=== PATIENT | male | born 1955 | race Caucasian/White ===

== ENCOUNTER 2016-08-20 14:28 | Inpatient (IN) | payer OTHER ==
[~2016-08-20] VITALS: Ht 188 cm; Wt 90.4 kg
[~2016-08-20 14:28] MED LIST: AMLODIPINE; ASPIRIN81 MG PO; ATENOLOL25 MG PO; ATROVENT H0.017 MG/1; BENZOCAINE; BENZONATATE; CALCIUM ANTACI500 MG PO; CIPROFLOXACIN500 MG PO; FLO4 PO; LORATADINE10 MG PO; MENTHOL; MORPHINE SULFAT15 MG; NASONEX0.05 MG/Ac; OMEPRAZOLE DR20 M1 PO; ONDANSETRON4 M3 PO; PREDNISONE1 MG PO; ROC1I; TERAZOSIN HCL2 MG PO; TRIAMCINOLONE AC0.13 TOP; TYLENOL EXTRA500 M2 PO; XOPENEX HF0.045 MG/1
[2016-08-20 16:48] LABS: BASOPHIL % 0.2 % (0-2)
[2016-08-20 16:49] LABS: RED CELL DISTRIBUTION WIDTH 14.9 % (11.5-14.5)
[2016-08-20 16:51] LABS: CALCIUM 8.9 mg/dL (8.5-10.1); CARBON DIOXIDE 26.3 mmol/L (21-32); CREATININE SERUM 1.4 mg/dL (0.7-1.3); PLATELET COUNT 58 x10^3mcL (130-400); POTASSIUM SERUM 4.2 mmol/L (3.5-5.1)
[2016-08-20 16:55] LABS: ALBUMIN 3.5 g/dL (3.4-5.0); BILIRUBIN TOTAL 1.6 mg/dL (0.20-1.00); TOTAL PROTEIN, SERUM 6.7 g/dL (6.4-8.2)
[2016-08-20 20:51] VITALS: BP 107/77
[2016-08-20 20:54] VITALS: Ht 188 cm; Wt 90.4 kg
[2016-08-20 21:02] VITALS: BP 107/77
[2016-08-21 06:04] LABS: BASOPHIL % 0.3 % (0-2)
[2016-08-21 06:27] LABS: CALCIUM 8.3 mg/dL (8.5-10.1); CARBON DIOXIDE 28.2 mmol/L (21-32); CREATININE SERUM 1.3 mg/dL (0.7-1.3); POTASSIUM SERUM 3.8 mmol/L (3.5-5.1)
[2016-08-21 06:41] VITALS: BP 98/57
[2016-08-21 07:14] LABS: PLATELET COUNT 54 x10^3mcL (130-400); RED CELL DISTRIBUTION WIDTH 15.1 % (11.5-14.5)
[2016-08-21 09:53] VITALS: BP 169/99
[2016-08-21 14:10] VITALS: BP 160/98
[2016-08-21 18:25] VITALS: BP 93/45
[2016-08-21 21:15] VITALS: BP 149/109
[2016-08-22 05:13] VITALS: BP 163/101
[2016-08-22 05:59] LABS: BASOPHIL % 0.5 % (0-2)
[2016-08-22 06:07] LABS: CALCIUM 7.9 mg/dL (8.5-10.1); CARBON DIOXIDE 30.1 mmol/L (21-32); CHLORIDE SERUM 110 mmol/L (98-107); CREATININE SERUM 1.2 mg/dL (0.7-1.3); GFR1 > 60 mL/min; GLUCOSE SERUM 99 mg/dL (74-106); POTASSIUM SERUM 4.6 mmol/L (3.5-5.1); SODIUM SERUM 145 mmol/L (136-145)
[2016-08-22 06:11] LABS: PLATELET COUNT 54 x10^3mcL (130-400); RED CELL DISTRIBUTION WIDTH 14.6 % (11.5-14.5)
[2016-08-22 10:15] VITALS: BP 165/104
[2016-08-22 14:56] VITALS: BP 165/104
[2016-08-22] MEDS ORDERED: CHILDREN'S5 MG/5 M1 PO (15:09)
[2016-08-22] MEDS ORDERED: OMEPRAZOLE MAGN20 M1 (15:11)
[2016-08-22 15:15] VITALS: BP 165/104
== END 2016-08-22 17:09 | disposition other institution (70) | DRG 433 ==
LOC: ED 14:28 → DU 19:03
PROVIDERS: Emergency Medicine; Internal Medicine; ADMIT Internal Medicine
PROC: 0DJ08ZZ Inspection of Upper Intestinal Tract, Via Natural or Artificial Opening Endoscopic (ICD-10-PCS; principal; 2016-08-22 12:00)
DX: K74.69 Other cirrhosis of liver (principal); C22.0 Liver cell carcinoma; R18.8 Other ascites; I85.10 Secondary esophageal varices without bleeding; B18.2 Chronic viral hepatitis C; I10 Essential (primary) hypertension; K59.00 Constipation, unspecified; J44.9 Chronic obstructive pulmonary disease, unspecified; I25.10 Atherosclerotic heart disease of native coronary artery without angina pectoris; D69.59 Other secondary thrombocytopenia; R74.0 Nonspecific elevation of levels of transaminase and lactic acid dehydrogenase [LDH]
CPT/HCPCS: 43235; J0696; J1200; J1610; J2250; J2270; J2310; J2550; J3010; J3490; J7042; J7512; Q0092

== ENCOUNTER 2016-10-30 10:54 | Inpatient (IN) | payer OTHER ==
[~2016-10-30] VITALS: Ht 188 cm; Wt 103.6 kg
[~2016-10-30 10:54] MED LIST changes: +CHILDREN'S5 MG/5 M1 PO; +OMEPRAZOLE MAGN20 M1
[2016-10-30 11:31] LABS: BASOPHIL % 0.5 % (0-2); RED CELL DISTRIBUTION WIDTH 14.5 % (11.5-14.5)
[2016-10-30 11:34] LABS: PLATELET COUNT 81 x10^3mcL (130-400)
[2016-10-30 11:40] LABS: CARBON DIOXIDE 21.9 mmol/L (21-32); CREATININE SERUM 1.3 mg/dL (0.7-1.3); POTASSIUM SERUM 4.2 mmol/L (3.5-5.1)
[2016-10-30 11:45] LABS: ALBUMIN 3.5 g/dL (3.4-5.0); BILIRUBIN TOTAL 1.53 mg/dL (0.20-1.00); TOTAL PROTEIN, SERUM 6.9 g/dL (6.4-8.2)
[2016-10-30 12:13] LABS: microscopic required? NO
[2016-10-30 12:32] LABS: urine erythrocyte NEGATIVE (NEGATIVE)
[2016-10-30] MEDS ORDERED: NEXAVAR200 MG PO (12:38)
[2016-10-30] MEDS ORDERED: PRILOSEC OTC20 M1 PO (12:39)
[2016-10-30] MEDS ORDERED: FOSAMAX70 M1 PO (12:40)
[2016-10-30] MEDS ORDERED: TESSALON PERLE100 MG PO ×2 (12:40→12:44)
[2016-10-30] MEDS ORDERED: NON-ASPIRIN325 MG PO (12:41)
[2016-10-30] MEDS ORDERED: ALENDRONATE SOD70 M3 PO (12:42)
[2016-10-30] MEDS ORDERED: CEPACOL SORE TH1 LO4 MM (12:43)
[2016-10-30] MEDS ORDERED: NATURE S BLEND PO (12:45)
[2016-10-30] MEDS ORDERED: CALCIUM POLYCARBOPHIL PO (12:46)
[2016-10-30] MEDS ORDERED: ARTHRITIS PAI42.5 GM TP (12:47)
[2016-10-30] MEDS ORDERED: CIPRO500 MG PO (12:47)
[2016-10-30] MEDS ORDERED: CLONIDINE HYDR0.3 M1 PO (12:48)
[2016-10-30] MEDS ORDERED: FINASTERIDE5 M1 PO (12:49)
[2016-10-30] MEDS ORDERED: FUROSEMIDE20 MG PO (12:49)
[2016-10-30] MEDS ORDERED: ATRUD HHN (12:51)
[2016-10-30] MEDS ORDERED: LACTULOSE10 GM/152 PO (12:51)
[2016-10-30] MEDS ORDERED: CLARITIN10 MG PO (12:52)
[2016-10-30] MEDS ORDERED: XOPENEX HF0.045 MG/1 IH (12:52)
[2016-10-30] MEDS ORDERED: COZAAR100 MG PO (12:53)
[2016-10-30] MEDS ORDERED: METOCLOPRAMIDE10 M2 PO (12:53)
[2016-10-30] MEDS ORDERED: ASMANEX TW0.22 MG/A1 IH (12:54)
[2016-10-30] MEDS ORDERED: MORPHINE SULFAT15 M7 PO (12:55)
[2016-10-30] MEDS ORDERED: MORPHINE SULFAT30 M6 PO (12:57)
[2016-10-30] MEDS ORDERED: ALLERGY EYE DRO15 ML (12:58)
[2016-10-30] MEDS ORDERED: PREDNISONE20 MG PO (12:59)
[2016-10-30] MEDS ORDERED: SPIRIVA18 MC1 INH (13:00)
[2016-10-30] MEDS ORDERED: FLOMAX0.4 MG PO (13:00)
[2016-10-30] MEDS ORDERED: [UNRECOGNIZED DRUG - OTHER] TOP (13:01)
[2016-10-30] MEDS ORDERED: NASINH (13:02)
[2016-10-30 13:30] VITALS: BP 185/122
[2016-10-30 13:39] VITALS: BP 185/122
[2016-10-30 16:36] VITALS: BP 185/122
[2016-10-30 17:00] VITALS: BP 132/87
[2016-10-30 20:58] VITALS: BP 114/80
[2016-10-30 20:59] VITALS: BP 159/73
[2016-10-31 06:17] LABS: CALCIUM 8.3 mg/dL (8.5-10.1); CARBON DIOXIDE 27.5 mmol/L (21-32); CREATININE SERUM 1.4 mg/dL (0.7-1.3); POTASSIUM SERUM 4.4 mmol/L (3.5-5.1)
[2016-10-31 06:19] LABS: BASOPHIL % 0.3 % (0-2); RED CELL DISTRIBUTION WIDTH 14.4 % (11.5-14.5)
[2016-10-31 06:46] VITALS: BP 160/110
[2016-10-31 06:53] LABS: PLATELET COUNT 58 x10^3mcL (130-400)
[2016-10-31 09:00] VITALS: BP 138/104
[2016-10-31 14:00] VITALS: BP 117/92
[2016-10-31 17:00] VITALS: BP 125/82
[2016-10-31 21:33] VITALS: BP 114/81
[2016-11-01 06:08] VITALS: BP 131/101
[2016-11-01 06:22] LABS: CALCIUM 8.5 mg/dL (8.5-10.1); CREATININE SERUM 1.3 mg/dL (0.7-1.3); POTASSIUM SERUM 5.2 mmol/L (3.5-5.1)
[2016-11-01 06:39] LABS: BASOPHIL % 0.4 % (0-2); RED CELL DISTRIBUTION WIDTH 14.2 % (11.5-14.5)
[2016-11-01 06:59] LABS: PLATELET COUNT 55 x10^3mcL (130-400)
[2016-11-01 10:09] VITALS: BP 142/109
[2016-11-01 13:56] VITALS: BP 145/106
[2016-11-01 14:02] VITALS: BP 145/106
== END 2016-11-01 16:48 | disposition other institution (70) | DRG 392 ==
LOC: ED 10:54 → DU 12:28
PROVIDERS: Emergency Medicine; ADMIT Internal Medicine
DX: K52.9 Noninfective gastroenteritis and colitis, unspecified (principal); C22.0 Liver cell carcinoma; R18.8 Other ascites; E87.2 Acidosis; K74.69 Other cirrhosis of liver; I10 Essential (primary) hypertension; R06.89 Other abnormalities of breathing
CPT/HCPCS: 83880; J0295; J2270; J2550; J3010; J3490; J7030; J7512; J7644; Q0092

== ENCOUNTER 2017-08-20 15:09 | Inpatient (IN) | payer OTHER ==
[~2017-08-20] VITALS: Ht 188 cm; Wt 104.4 kg
[~2017-08-20 15:09] MED LIST changes: +ALENDRONATE SOD70 M3 PO; +ALLERGY EYE DRO15 ML; +ARTHRITIS PAI42.5 GM TP; +ASMANEX TW0.22 MG/A1 IH; +ATRUD HHN; +CALCIUM POLYCARBOPHIL PO; +CEPACOL SORE TH1 LO4 MM; +CIPRO500 MG PO; +CLARITIN10 MG PO; +CLONIDINE HYDR0.3 M1 PO; +COZAAR100 MG PO; +FINASTERIDE5 M1 PO; +FLOMAX0.4 MG PO; +FOSAMAX70 M1 PO; +FUROSEMIDE20 MG PO; +LACTULOSE10 GM/152 PO; +METOCLOPRAMIDE10 M2 PO; +MORPHINE SULFAT15 M7 PO; +MORPHINE SULFAT30 M6 PO; +NASINH; +NATURE S BLEND PO; +NEXAVAR200 MG PO; +NON-ASPIRIN325 MG PO; +PREDNISONE20 MG PO; +PRILOSEC OTC20 M1 PO; +SPIRIVA18 MC1 INH; +TESSALON PERLE100 MG PO; +XOPENEX HF0.045 MG/1 IH; +[UNRECOGNIZED DRUG - OTHER] TOP
[2017-08-20 15:14] VITALS: Ht 188 cm; Wt 104.4 kg
[2017-08-20 16:03] LABS: BASOPHIL % 0.2 % (0-2)
[2017-08-20 16:07] LABS: PLATELET COUNT 55 x10^3mcL (130-400); RED CELL DISTRIBUTION WIDTH 15.8 % (11.5-14.5)
[2017-08-20 16:13] LABS: CALCIUM 8.9 mg/dL (8.5-10.1); CARBON DIOXIDE 26.7 mmol/L (21-32); CHLORIDE SERUM 110 mmol/L (98-107); GFR1 > 60 mL/min; GLUCOSE SERUM 118 mg/dL (74-106); POTASSIUM SERUM 4.1 mmol/L (3.5-5.1); SODIUM SERUM 144 mmol/L (136-145)
[2017-08-20] MEDS ORDERED: HYDROCHLOROTHIA25 MG PO (16:14)
[2017-08-20] MEDS ORDERED: FIBERLAX PO (16:14)
[2017-08-20] MEDS ORDERED: IPRATROPIUM-ALBUTERO ×2 (16:16→16:17)
[2017-08-20 16:17] LABS: ALBUMIN 3.8 g/dL (3.4-5.0); ALKALINE PHOSPHATASE 110 U/L (46-116); ALT/SGPT 110 U/L (16-63); AMYLASE 37 U/L (25-115); AST/SGOT 47 U/L (15-37); BILIRUBIN TOTAL 1.44 mg/dL (0.20-1.00); LIPASE 141 IU/L (73-393); TOTAL PROTEIN, SERUM 6.8 g/dL (6.4-8.2)
[2017-08-20] MEDS ORDERED: KETOTIFEN (16:18)
[2017-08-20] MEDS ORDERED: LACTULOSE10 GM/152 PO (16:19)
[2017-08-20] MEDS ORDERED: SINGULAIR10 MG PO (16:20)
[2017-08-20] MEDS ORDERED: MIRALAX17 GM/Dose PO (16:20)
[2017-08-20] MEDS ORDERED: NASINH (16:21)
[2017-08-20] MEDS ORDERED: NOR10 PO (16:22)
[2017-08-20] MEDS ORDERED: PREDNISONE20 MG PO (16:23)
[2017-08-20] MEDS ORDERED: PRILOSEC OTC20 M1 PO (16:23)
[2017-08-20] MEDS ORDERED: SPIRIVA18 MC1 INH (16:24)
[2017-08-20] MEDS ORDERED: SENNA8.6 M2 PO (16:24)
[2017-08-20] MEDS ORDERED: TAMSULOSIN HYD0.4 M1 PO (16:25)
[2017-08-20] MEDS ORDERED: [UNRECOGNIZED DRUG - OTHER] TOP (16:25)
[2017-08-20] MEDS ORDERED: TYLENOL325 M1 PO (16:26)
[2017-08-20 17:29] VITALS: BP 204/127
[2017-08-20 19:02] VITALS: BP 157/99
[2017-08-20 21:18] VITALS: BP 144/96
[2017-08-21 05:28] VITALS: BP 180/113
[2017-08-21 06:34] LABS: BASOPHIL % 0.3 % (0-2)
[2017-08-21 06:41] LABS: PLATELET COUNT 42 x10^3mcL (130-400)
[2017-08-21 06:49] LABS: CALCIUM 8.6 mg/dL (8.5-10.1); CARBON DIOXIDE 28.7 mmol/L (21-32); CHLORIDE SERUM 110 mmol/L (98-107); CREATININE SERUM 1.1 mg/dL (0.7-1.3); GFR1 > 60 mL/min; GLUCOSE SERUM 89 mg/dL (74-106); POTASSIUM SERUM 4.2 mmol/L (3.5-5.1); SODIUM SERUM 143 mmol/L (136-145)
[2017-08-21 09:57] VITALS: BP 183/111
[2017-08-21 13:58] VITALS: BP 162/101
[2017-08-21 17:38] VITALS: BP 143/100
[2017-08-21 21:31] VITALS: BP 137/88
[2017-08-22 05:58] VITALS: BP 160/96
[2017-08-22 09:49] VITALS: BP 123/80
[2017-08-22 12:46] VITALS: BP 113/90
[2017-08-22 14:24] VITALS: BP 113/90
[2017-08-22 16:40] VITALS: BP 112/68
== END 2017-08-22 17:07 | disposition other institution (70) | DRG 446 ==
LOC: ED 15:09 → DU 16:14
PROVIDERS: Emergency Medicine; Internal Medicine
DX: K80.20 Calculus of gallbladder without cholecystitis without obstruction (principal); I10 Essential (primary) hypertension; I25.10 Atherosclerotic heart disease of native coronary artery without angina pectoris; G89.4 Chronic pain syndrome; J44.9 Chronic obstructive pulmonary disease, unspecified; B19.20 Unspecified viral hepatitis C without hepatic coma; K74.60 Unspecified cirrhosis of liver; I16.0 Hypertensive urgency; K21.9 Gastro-esophageal reflux disease without esophagitis; Z88.5 Allergy status to narcotic agent; Z82.49 Family history of ischemic heart disease and other diseases of the circulatory system
CPT/HCPCS: J2270; J2405; J2550; J3490; J7512; J7644; J8597

== ENCOUNTER 2019-10-06 14:33 | Emergency (ER) | payer OTHER ==
[~2019-10-06] VITALS: Ht 182.9 cm; Wt 99.8 kg
[~2019-10-06 14:33] MED LIST changes: +FIBERLAX PO; +HYDROCHLOROTHIA25 MG PO; +IPRATROPIUM-ALBUTERO; +KETOTIFEN; +MIRALAX17 GM/Dose PO; +NOR10 PO; +SENNA8.6 M2 PO; +SINGULAIR10 MG PO; +TAMSULOSIN HYD0.4 M1 PO; +TYLENOL325 M1 PO
[2019-10-06 15:02] VITALS: Ht 182.9 cm; Wt 99.8 kg
[2019-10-06 15:46] LABS: BASOPHIL % 0.1 % (0-2); PLATELET COUNT 64 x10^3mcL (130-400); RED CELL DISTRIBUTION WIDTH 14.7 % (11.5-14.5)
[2019-10-06 16:02] LABS: CARBON DIOXIDE 25.5 mmol/L (21-32); CHLORIDE SERUM 106 mmol/L (98-107); GFR1 > 60 mL/min; GLUCOSE SERUM 99 mg/dL (74-106); POTASSIUM SERUM 3.7 mmol/L (3.5-5.1); SODIUM SERUM 141 mmol/L (136-145)
[2019-10-06 16:06] LABS: ALKALINE PHOSPHATASE 174 U/L (46-116); ALT/SGPT 46 U/L (16-63); AST/SGOT 34 U/L (15-37)
[2019-10-06 16:08] LABS: ALBUMIN 2.6 g/dL (3.4-5.0)
[2019-10-06 18:57] VITALS: BP 153/102
== END 2019-10-06 18:57 | disposition home or self-care (01) ==
LOC: ED 14:33
PROVIDERS: Emergency Medicine
DX: R10.84 Generalized abdominal pain (principal); K59.00 Constipation, unspecified; J44.9 Chronic obstructive pulmonary disease, unspecified; I10 Essential (primary) hypertension; Z85.05 Personal history of malignant neoplasm of liver; Z86.19 Personal history of other infectious and parasitic diseases; Z88.5 Allergy status to narcotic agent
CPT/HCPCS: 83880